=== PATIENT | female | born 1940 | race Caucasian/White ===

== ENCOUNTER 2018-05-09 16:42 | Emergency (ER) | payer MEDICARE ==
[~2018-05-09] VITALS: Ht 175.3 cm; Wt 81.6 kg
--- OUTSIDE RECORDS SUMMARY | 2018-05-09 16:45 | XMS REPORT ---
[facility] Address Unknown Phone Unavailable Care Team Providers Care Audio Tape Librarian Name Role Phone Unavailable Unavailable Payers Payer Name Policy Type Policy Number Effective Date Expiration Date Problems This patient has no known problems. Allergies, Adverse Reactions, Alerts Allergy Name Allergy Type Status Severity Reaction(s) Onset Date Inactive Date Treating Clinician Comments Sulfa (Sulfonamide Antibiotics) DA Active U 2018-04-22 00:00:00 No Known Contrast Allergies DA Active U 2005-01-22 00:00:00 No Known Food Allergies DA Active U 2005-01-22 00:00:00 No Known Other Allergies DA Active U 2005-01-22 00:00:00 SULFA DRUGS DA Active U 2005-01-22 00:00:00 Medications This patient has no known medications.
[2018-05-09] MEDS ORDERED: HYDROCODONE/APAP 5MG-325MG TAB PO ONE (17:15)
[2018-05-09 17:58] LABS: CLARITY,URINE SL CLOUDY (CLEAR); COLOR,URINE YELLOW (YELLOW); LEUKOCYTE ESTERASE ,URINE NEGATIVE (NEGATIVE); NITRITE,URINE NEGATIVE (NEGATIVE); PROTEIN,URINE DIPSTICK NEGATIVE (NEGATIVE)
[2018-05-09 17:59] LABS: BILIRUBIN,URINE NEGATIVE (NEGATIVE); KETONES,URINE NEGATIVE (NEGATIVE); URINE UROBILINOGEN 0.2 mg/dL (0.2 - 1)
[2018-05-09 18:07] LABS: AMORPHOUS SEDIMENT,URINE MODERATE (FEW); BACTERIA,URINE MANY /HPF; EPITHELIAL CELLS,URINE FEW /LPF
== END 2018-05-09 18:14 | disposition left against medical advice (07) ==
LOC: ER 16:42
DX: S20.212A Contusion of left front wall of thorax, initial encounter (principal); W18.39XA Other fall on same level, initial encounter; Y92.008 Other place in unspecified non-institutional (private) residence as the place of occurrence of the external cause; E11.9 Type 2 diabetes mellitus without complications; E03.9 Hypothyroidism, unspecified; H81.09 Meniere's disease, unspecified ear
CPT/HCPCS: 81001; 87086; 99282

== ENCOUNTER 2025-02-23 16:32 | Emergency (ER) | payer MEDICARE ==
[~2025-02-23] VITALS: Ht 175.3 cm; Wt 81.6 kg
[2025-02-23 16:42] VITALS: PULSE 90; RESP 18; TEMP 98.6; O2SAT 97
== END 2025-02-23 16:56 | disposition home or self-care (01) ==
LOC: ER 16:49
DX: S00.83XA Contusion of other part of head, initial encounter (principal); W18.39XA Other fall on same level, initial encounter; Y93.01 Activity, walking, marching and hiking; Y92.89 Other specified places as the place of occurrence of the external cause; I10 Essential (primary) hypertension; E11.9 Type 2 diabetes mellitus without complications; J44.9 Chronic obstructive pulmonary disease, unspecified; E03.9 Hypothyroidism, unspecified; E78.5 Hyperlipidemia, unspecified; H81.09 Meniere's disease, unspecified ear; F41.9 Anxiety disorder, unspecified; Z87.19 Personal history of other diseases of the digestive system
CPT/HCPCS: 99283

== ENCOUNTER 2025-05-13 20:52 | Emergency (ER) | payer MEDICARE ==
[~2025-05-13] VITALS: Ht 175.3 cm; Wt 81.6 kg
[2025-05-13] MEDS: ACETAMINOPHEN 325 MG TAB PO ONE (22:08)
[2025-05-13 23:51] VITALS: PULSE 66; RESP 17; TEMP 97.9; O2SAT 97
[2025-05-13] MEDS: Morphine 2mg Syringe 2 MG/ML SYR IV ONE (23:51)
[2025-05-13] MEDS: ONDANSETRON HCL INJ 2MG/ML 2ML 2 MG/ML VIAL IV STA (23:51)
[2025-05-13 23:56] LABS: BASOPHILS % 0.6 % (0.0-1.0); EOSINOPHILS % 4.1 % (0.0-6.0); LYMPHOCYTES % 24.0 % (18.0-39.1); MONOCYTES % 6.3 % (4.4-11.3); NEUTROPHILS % 61.5 % (38.7-80.0); RED CELL DISTRIBUTION WIDTH 13.3 % (11.7-14.4)
[2025-05-14 00:14] LABS: EST GLOMERULAR FILTRATION RATE 84.0 ML/MIN (>=60)
== END 2025-05-14 00:15 | disposition other institution (70) ==
LOC: ER 21:04
DX: M54.50 Low back pain, unspecified (principal); S32.021A Stable burst fracture of second lumbar vertebra, initial encounter for closed fracture; W01.0XXA Fall on same level from slipping, tripping and stumbling without subsequent striking against object, initial encounter; Y92.89 Other specified places as the place of occurrence of the external cause; I10 Essential (primary) hypertension; E11.65 Type 2 diabetes mellitus with hyperglycemia; J44.9 Chronic obstructive pulmonary disease, unspecified; E03.9 Hypothyroidism, unspecified; E78.5 Hyperlipidemia, unspecified; F41.9 Anxiety disorder, unspecified; M19.09 Primary osteoarthritis, other specified site; Z87.19 Personal history of other diseases of the digestive system
CPT/HCPCS: 36415; 70450; 72125; 72128; 72131; 80048; 85025; 99284; J2270; J2405